=== PATIENT | female | born 1940 | race Caucasian/White ===

== ENCOUNTER 2019-03-19 15:55 | Emergency (ER) | payer MEDICARE, MEDICAID ==
[~2019-03-19] VITALS: Ht 162.5 cm; Wt 86.2 kg
[~2019-03-19 15:55] MED LIST: ASPIRIN81 M1 PO; CLINORIL200 MG PO; COLACE-T100 MG PO; COLACE100 MG PO; DULCOLAX5 M1 PO; EXELON3 MG PO; EXELON9.5 MG/24 TD; FISH OIL1000 MG PO; IBU-200200 MG PO; KLOR-CON 1010 MEQ PO; LISINOPRIL10 M1 PO; LISINOPRIL10 MG PO; LISINOPRIL20 MG PO; LOPRESSOR25 MG PO; Lopressor25 MG PO; MELLARIL PO; MELLARIL25 MG PO; METFORMIN500 MG PO; MILK OF MA400 MG/5 M PO; NORVASC5 MG PO; OMEPRAZOLE DR20 M1 PO; OS-CAL 500+D31 EAC1 PO; OSCAL/D,OYSTER250 MG PO; POTASSIUM CHLO10 ME5 PO; PRILOSEC20 M2 PO; RITE AID FISH1000 MG PO; ROBITUSSIN5 ML PO; SULINDAC200 M1 PO; SYNTHROID0.05 MG PO; Synthroid,Levo50 MCG PO; TOPROL XL25 MG PO; ZOLOFT100 MG PO
[2019-03-19 17:46] VITALS: BP 184/82
== END 2019-03-19 20:26 | disposition home or self-care (01) ==
LOC: ED 15:55
DX: S20.229A Contusion of unspecified back wall of thorax, initial encounter (principal); K21.9 Gastro-esophageal reflux disease without esophagitis; I10 Essential (primary) hypertension; E03.9 Hypothyroidism, unspecified; Z90.49 Acquired absence of other specified parts of digestive tract; W05.0XXA Fall from non-moving wheelchair, initial encounter; Z79.899 Other long term (current) drug therapy; Z79.82 Long term (current) use of aspirin; Y93.89 Activity, other specified; Y92.818 Other transport vehicle as the place of occurrence of the external cause; Y99.8 Other external cause status